=== PATIENT | female | born 1950 | race African-American/Black ===

== ENCOUNTER 2016-06-22 10:28 | Emergency (ER) | payer OTHER ==
[2016-06-22 10:37] VITALS: BP 140/077
--- NOTE | 2016-06-22 10:47 | PROVIDER DOCUMENTATION ---
HPI-Rash/Wound/ReCheck <Trace Miranda - Last Filed: 06/22/16 10:45> - General Source: patient - History of Present Illness-Dermatology Location: reports: upper extremity (left hand) Quality: reports: itchy Severity: reports: mild Onset/Duration: reports: unsure Timing: reports: still present, intermittent Context/Associated Symptoms: reports: rash. denies: edema, fever, hives, lesion Identifiable cause?: No Exposure: reports: unknown cause Locality of Occurance: Home Similar Symptoms Previously?: No Recently seen or treated by another doctor?: No <Jovanni Mae - Last Filed: 06/22/16 10:52> - General Chief Complaint: Rash Stated Complaint: RASH Time Seen by Provider: 06/22/16 10:39 Allergies/Adverse Reactions: Allergies Allergy/AdvReac Type Severity Reaction Status Date / Time No Known Allergies Allergy Verified 06/22/16 10:36 Home Medications: Home Medication List Medication Instructions Recorded Confirmed Last Taken Type Allopurinol [Zyloprim] 100 mg PO BID 07/30/12 04/05/16 04/05/16 08:00 History 100 MG Aspirin 81 mg PO QAM 02/08/15 04/05/16 04/05/16 08:00 History 81 MG Atorvastatin Calcium 40 mg PO QAM 02/08/15 04/05/16 04/05/16 08:00 History 40 MG Glipizide [Glucotrol] 10 mg PO BID 02/08/15 04/05/16 04/05/16 08:00 History 10 MG Omeprazole [Prilosec] 40 mg PO QAM 02/08/15 04/05/16 04/05/16 08:00 History 40 MG Carvedilol [Coreg] 25 mg PO BID #60 tablet 02/11/15 04/05/16 04/05/16 08:00 Rx 25 MG Cilostazol [Pletal] 25 mg PO BID 01/20/16 04/05/16 04/05/16 08:00 History 25 MG Naproxen [Naprosyn] 500 mg PO BID #20 tablet 01/20/16 04/05/16 04/05/16 08:00 Rx 500 mg Amlodipine [Norvasc] 10 mg PO QAM 04/05/16 04/05/16 04/05/16 08:00 History 10 MG Azithromycin [Zithromax Z-Eric] 250 mg PO DIRECTED #1 pkg 04/05/16 Unknown Rx Furosemide [Lasix] 40 mg PO QAM 04/05/16 04/05/16 04/05/16 08:00 History 40 MG - History of Present Illness-Dermatology Nature of Presenting Problem: pt is a 66 yo F that presents to the with an area of dry skin to her left hand, denies exposure to anything (Jovanni Mae) Review of Systems - Adult - REVIEW OF SYSTEMS - ADULT Constitutional: denies: chills, fever Eyes: reports: no symptoms reported Ears, Nose, Mouth & Throat: reports: no symptoms reported Cardiovascular: reports: no symptoms reported Respiratory: reports: no symptoms reported Gastrointestinal: denies: diarrhea, nausea, vomiting Genitourinary: denies: dysuria, frequency Musculoskeletal: denies: back pain, muscle aches, neck pain Integumentary: reports: itching, rash Neurological: reports: no symptoms reported Psychiatric: reports: no symptoms reported Endocrine: reports: no symptoms reported Hematologic/Lymphatic: reports: no symptoms reported Allergic/Immunologic: reports: no symptoms reported All Other Systems: Reviewed and Negative <Jovanni Mae - Last Filed: 06/22/16 10:52> Past History - Adult - PAST MEDICAL HISTORY-ADULT Major Childhood Illnesses: reports: denies history Cardiovascular: reports: CHF, HTN Respiratory: reports: asthma Gastrointestinal: reports: denies history Obstetrical/Gynecological: reports: denies history Genitourinary: reports: denies history Musculoskeletal: reports: arthritis, other (gout) Neurological: reports: denies history Endocrine/Immune: reports: Diabetes Other Conditions: reports: other (GOUT) - PRIOR SURGERIES/PROCEDURES Surgical/Procedure History: reports: hysterectomy - IMMUNIZATION STATUS Childhood Immunizations: See Nurse Assessment Flu Vaccine: See Nurse Assessment - FAMILY HISTORY Family History: reviewed, not pertinent <Trace Miranda - Last Filed: 06/22/16 10:45> - PAST MEDICAL HISTORY-ADULT Review of Records: reports: Old Records Reviewed, Nursing Assessment Review, Medications Reviewed Cardiovascular: reports: HTN Musculoskeletal: reports: arthritis (gout) Endocrine/Immune: reports: Diabetes Diabetes controlled by:: PO Meds - PRIOR SURGERIES/PROCEDURES Surgical/Procedure History: reports: hysterectomy - IMMUNIZATION STATUS Childhood Immunizations: See Nurse Assessment Flu Vaccine: See Nurse Assessment - FAMILY HISTORY Family History: reviewed, not pertinent - SOCIAL HISTORY Smoking: cigarettes Living Situation: alone <Jovanni Mae - Last Filed: 06/22/16 10:52> Physical Exam-General - PHYSICAL EXAM-ADULT Initial Vital Signs Reviewed: Yes - CONSTITUTIONAL General Appearance: alert, no apparent distress - EYES Eyes: PERRL/EOMI, pink conjunctivae - HEAD, EARS, NOSE, MOUTH & THROAT HENMT: normocephalic/atraumatic, moist mucous membranes, normal ENT inspection - NECK Neck: full range of motion, normal inspection - RESPIRATORY Respiratory: lungs clear, normal breath sounds, no respiratory distress, no accessory muscle use - CARDIOVASCULAR Cardiovascular: regular rate, rhythm, no edema, no murmur - GASTROINTESTINAL (ABDOMEN) Abdominal Exam: non tender, soft - MUSCULOSKELETAL Extremity: no calf tenderness, normal capillary refill - SKIN Integumentary: warm/dry, other (dry skin to left hand about 2cm area) - NEUROLOGIC Neurologic: grossly normal, no motor/sensory deficits - PSYCHIATRIC Psych/Mental Status: normal mood/affect, normal thought content, normal thought process, oriented x 3 <Jovanni Mae - Last Filed: 06/22/16 10:52> Progress <Trace Miranda - Last Filed: 06/22/16 10:45> <Jovanni Mae - Last Filed: 06/22/16 10:52> - PLAN OF CARE/RESULTS Progress/Plan/Lab Results: Vital Signs Temp Pulse Resp BP Pulse Ox 06/22/16 10:34 97.8 F 92 H 16 140/077 98 No Known Allergies Allergy (Verified 06/22/16 10:36) Allopurinol [Zyloprim] 100 mg PO BID 07/30/12 Aspirin 81 mg PO QAM 02/08/15 Atorvastatin Calcium 40 mg PO QAM 02/08/15 Glipizide [Glucotrol] 10 mg PO BID 02/08/15 Omeprazole [Prilosec] 40 mg PO QAM 02/08/15 Carvedilol [Coreg] 25 mg PO BID #60 tablet 02/11/15 Cilostazol [Pletal] 25 mg PO BID 01/20/16 Naproxen [Naprosyn] 500 mg PO BID #20 tablet 01/20/16 Amlodipine [Norvasc] 10 mg PO QAM 04/05/16 Azithromycin [Zithromax Z-Eric] 250 mg PO DIRECTED #1 pkg 04/05/16 Furosemide [Lasix] 40 mg PO QAM 04/05/16 (Jovanni Mae) Departure - Departure Time of Disposition Order: 10:45 Certified Medical Emergency: Urgent <Trace Miranda - Last Filed: 06/22/16 10:45> <Jovanni Mae - Last Filed: 06/22/16 10:52> - Departure DIAGNOSIS: Dry skin dermatitis Disposition: HOME 01 Condition: Good Additional Instructions: Take the following: [employer]entials Everyday Moisture Hydrating Lotion, 14.5 oz Follow up with your primary care provider or telecommunications manager. ED Follow Up Instructions: You have been treated by a care provider in the Emergency Department. These instructions are being provided to you so you can have an understanding of how to care for yourself upon discharge. Upon discharge from the Emergency Department, you are responsible for making arrangements for follow-up care by a physician of your choice. Take all prescribed medications as directed. Return to the Emergency Department immediately for any new or worsening symptoms. You may call the Physician Referral phone number at [phone] to obtain a list of Physicians who are taking new patients. Referrals: Akosua Skaggs MD [Primary Care Provider] - Margaux Simon MD [STAFF PHYSICIAN] - Attestation - Physician/ BRET Attestation Patient care was provided by Advanced Practice Provider:: Yes Advanced Practice Provider:: Trace Miranda Advanced Practice Provider documentation review:: The Mid-level provider documentation, treatment plan and medical decision making was reviewed by the physician who agrees with all treatment and medical decision making by the [facility]. <Trace Miranda - Last Filed: 06/22/16 10:45> - Scribe Verification/Attestation Scribe:: Jovanni Mae Acting as Scribe for:: Trace Miranda Scribe documention review:: This chart was documented by a scribe and accurately reflects the service the provider performed and the decisions made by the provider. - Physician/ BRET Attestation Patient care was provided by Advanced Practice Provider:: Yes Advanced Practice Provider:: Trace Miranda Advanced Practice Provider documentation review:: The Mid-level provider documentation, treatment plan and medical decision making was reviewed by the physician who agrees with all treatment and medical decision making by the [facility]. <Jovanni Mae - Last Filed: 06/22/16 10:52> Physician Attestation - Physician Attestation I, the provider, attest to the following statement:: Trace Miranda Physician documentation Attestation:: This documentation recorded by the scribe accurately reflects the service I personally performed and the decisions made by me. <Jovanni Mae - Last Filed: 06/22/16 10:52>
== END 2016-06-22 11:08 | disposition home or self-care (01) ==
LOC: P.ED 10:28
DX: L85.3 Xerosis cutis (principal); R21 Rash and other nonspecific skin eruption; L29.9 Pruritus, unspecified; I50.9 Heart failure, unspecified; I10 Essential (primary) hypertension; M19.90 Unspecified osteoarthritis, unspecified site; E11.9 Type 2 diabetes mellitus without complications; M10.9 Gout, unspecified; Z79.899 Other long term (current) drug therapy; Z79.02 Long term (current) use of antithrombotics/antiplatelets; Z79.82 Long term (current) use of aspirin
CPT/HCPCS: 99281

== ENCOUNTER 2019-01-15 14:25 | Inpatient (IN) ==
[2019-01-15] MEDS ORDERED: ASPIRIN PO STA (14:40)
[2019-01-15] MEDS ORDERED: HEPARIN 25,000 UNITS/D5W 25,000 UNIT/250 ML IV.SOLN IV SCH (14:45)
[2019-01-15] MEDS ORDERED: HEPARIN 25,000 UNIT in NS 250 ML IV SCH (19:00)
[2019-01-15 19:16] LABS: BASO# 0.03 X1000 (0.0-0.2); BASO% 0.5 % (0.0-0.8); EOS# 0.19 X1000 (0.0-0.7); EOS% 3.5 % (0.0-10.0); HEMATOCRIT 42.8 % (37.0-47.0); HEMOGLOBIN 14.2 g/dL (12.0-16.0); LYMPH# 2.11 X1000 (1.2-3.4); LYMPH% 38.6 % (20.5-51.1); MCH 30.6 PG (27-31); MCHC 33.2 g/dL (33-37); MCV 92.2 FL (81-99); MONO# 0.31 X1000 (0.11-0.59); MONO% 5.7 % (1.7-9.3); MPV 10.9 FL (7.4-10.4); NEUT# 2.83 X1000 (1.4-6.5); NEUT% 51.7 % (42.2-75.2); PLT 209 X1000 (130-400); RBC 4.64 XMIL (4.2-5.4); RDW 12.8 % (11.5-14.5); WBC 5.47 X1000 (4.8-10.8)
[2019-01-15] MEDS: LIPITOR PO SCH (21:44)
[2019-01-15] MEDS: ALPHAGAN P 0.1% OPHTH SOLN OPH SCH (21:45)
[2019-01-15] MEDS: XALATAN 0.005% OPH SOLN OPH SCH (21:45)
[2019-01-16] MEDS ORDERED: HEPARIN IV ONE (01:57)
[2019-01-16] MEDS ORDERED: HEPARIN 25,000 UNIT in NS 250 ML IV SCH (02:00)
[2019-01-16] MEDS ORDERED: HEPARIN 25,000 UNITS/D5W 25,000 UNIT/250 ML IV.SOLN IV SCH (02:03)
[2019-01-16] MEDS: HEPARIN 25,000 UNIT in NS 250 ML IV SCH (02:32)
[2019-01-16] MEDS ORDERED: DILAUDID IV ONE (06:00)
[2019-01-16] MEDS ORDERED: ASPIRIN PO SCH (09:00)
[2019-01-16] MEDS: ZYLOPRIM PO SCH (09:29)
[2019-01-16] MEDS: PLETAL PO SCH (09:29)
[2019-01-16] MEDS: GLUCOTROL PO SCH ×2 (09:29→16:56)
[2019-01-16] MEDS: ALPHAGAN P 0.1% OPHTH SOLN OPH SCH ×2 (09:29→20:10)
[2019-01-16] MEDS: NORVASC PO SCH (09:30)
[2019-01-16] MEDS: ASPIRIN PO SCH (09:30)
[2019-01-16] MEDS: PRILOSEC PO SCH (09:30)
[2019-01-16] MEDS: TYLENOL PO PRN ×3 (10:48→18:57)
[2019-01-16] MEDS: XALATAN 0.005% OPH SOLN OPH SCH (20:10)
[2019-01-16] MEDS: LIPITOR PO SCH (20:10)
[2019-01-16] MEDS ORDERED: LANTUS INSULIN SUBQ SCH (21:00)
[2019-01-17] MEDS: HEPARIN 25,000 UNIT in NS 250 ML IV SCH ×2 (03:23→22:23)
[2019-01-17] MEDS: TYLENOL PO PRN (05:25)
[2019-01-17] MEDS: ALPHAGAN P 0.1% OPHTH SOLN OPH SCH ×2 (08:51→21:09)
[2019-01-17] MEDS: NORVASC PO SCH (08:51)
[2019-01-17] MEDS: ZYLOPRIM PO SCH (08:51)
[2019-01-17] MEDS: ASPIRIN PO SCH (08:51)
[2019-01-17] MEDS: PLETAL PO SCH (08:51)
[2019-01-17] MEDS: GLUCOTROL PO SCH ×2 (08:51→17:05)
[2019-01-17] MEDS: PRILOSEC PO SCH (08:52)
[2019-01-17] MEDS: ULTRAM PO PRN ×2 (12:00→17:57)
[2019-01-17] MEDS: LIPITOR PO SCH (21:08)
[2019-01-17] MEDS: XALATAN 0.005% OPH SOLN OPH SCH (21:08)
[2019-01-17] MEDS: LANTUS INSULIN SUBQ SCH (21:08)
[2019-01-18] MEDS: HEPARIN 25,000 UNIT in NS 250 ML IV SCH (06:23)
[2019-01-18] MEDS: ULTRAM PO PRN ×3 (06:23→21:38)
[2019-01-18] MEDS: PRILOSEC PO SCH (08:38)
[2019-01-18] MEDS: GLUCOTROL PO SCH ×2 (08:38→16:45)
[2019-01-18] MEDS: ZYLOPRIM PO SCH (08:38)
[2019-01-18] MEDS: PLETAL PO SCH (08:38)
[2019-01-18] MEDS: NORVASC PO SCH (08:38)
[2019-01-18] MEDS: ASPIRIN PO SCH (08:38)
[2019-01-18] MEDS: ALPHAGAN P 0.1% OPHTH SOLN OPH SCH ×2 (08:39→21:25)
[2019-01-18] MEDS ORDERED: SOLU-MEDROL IV ONE (18:15)
[2019-01-18] MEDS: LIPITOR PO SCH (21:25)
[2019-01-18] MEDS: XALATAN 0.005% OPH SOLN OPH SCH (21:25)
[2019-01-18] MEDS: LANTUS INSULIN SUBQ SCH (21:25)
[2019-01-19] MEDS: PRILOSEC PO SCH (09:17)
[2019-01-19] MEDS: ASPIRIN PO SCH (09:17)
[2019-01-19] MEDS: ZYLOPRIM PO SCH (09:18)
[2019-01-19] MEDS: GLUCOTROL PO SCH ×2 (09:18→17:07)
[2019-01-19] MEDS: NORVASC PO SCH (09:18)
[2019-01-19] MEDS: PLETAL PO SCH (09:18)
[2019-01-19] MEDS: ALPHAGAN P 0.1% OPHTH SOLN OPH SCH ×2 (09:19→21:33)
[2019-01-19] MEDS: ULTRAM PO PRN ×2 (09:27→18:38)
[2019-01-19] MEDS ORDERED: ROBAXIN PO ONE (19:17)
[2019-01-19] MEDS ORDERED: MEDROL PO SCH ×2 (21:00)
[2019-01-19] MEDS: LIPITOR PO SCH (21:32)
[2019-01-19] MEDS: XALATAN 0.005% OPH SOLN OPH SCH (21:33)
[2019-01-19] MEDS: LANTUS INSULIN SUBQ SCH (21:33)
[2019-01-20] MEDS: ULTRAM PO PRN (06:24)
[2019-01-20] MEDS ORDERED: MEDROL PO SCH ×2 (07:00→21:00)
[2019-01-20] MEDS ORDERED: HUMALOG SUBQ SCH (07:00)
[2019-01-20 07:30] VITALS: BP 152/87
[2019-01-20] MEDS: PLETAL PO SCH (08:50)
[2019-01-20] MEDS: PRILOSEC PO SCH (08:50)
[2019-01-20] MEDS: ZYLOPRIM PO SCH (08:50)
[2019-01-20] MEDS: GLUCOTROL PO SCH (08:50)
[2019-01-20] MEDS: NORVASC PO SCH (08:51)
[2019-01-20] MEDS: ASPIRIN PO SCH (08:51)
[2019-01-20] MEDS: ALPHAGAN P 0.1% OPHTH SOLN OPH SCH (08:51)
[2019-01-20] MEDS ORDERED: ROBAXIN PO SCH (09:00)
[2019-01-21] MEDS ORDERED: MEDROL PO SCH (07:00)
[2019-01-22] MEDS ORDERED: MEDROL PO SCH (07:00)
[2019-01-23] MEDS ORDERED: MEDROL PO SCH (07:00)
[2019-01-24] MEDS ORDERED: MEDROL PO SCH (07:00)
== END 2019-01-20 11:33 | disposition home or self-care (01) ==
LOC: DIRADM 14:25 → 1N 14:51
PROVIDERS: ADMIT Internal Medicine; ATTEND Internal Medicine